=== PATIENT | female | born 1970 | race Two or more races ===

== ENCOUNTER 2018-05-21 19:02 | Emergency (ER) | payer OTHER ==
[~2018-05-21] VITALS: Ht 157.5 cm; Wt 75.3 kg
[2018-05-21 19:05] VITALS: BP 125/75
[2018-05-21] MEDS ORDERED: HYDROcodone-ACET 10/325MG TAB PO ONE (20:00)
== END 2018-05-21 21:36 | disposition home or self-care (01) ==
LOC: ER 19:06
DX: S80.02XA Contusion of left knee, initial encounter (principal); M54.9 Dorsalgia, unspecified; G89.29 Other chronic pain; Z98.51 Tubal ligation status; Z90.49 Acquired absence of other specified parts of digestive tract; V49.59XA Passenger injured in collision with other motor vehicles in traffic accident, initial encounter; Y93.89 Activity, other specified; Y99.8 Other external cause status; Y92.89 Other specified places as the place of occurrence of the external cause
CPT/HCPCS: 29505; 73700